=== PATIENT | female | born 1970 | race Caucasian/White ===

== ENCOUNTER 2018-03-11 02:50 | Emergency (ER) | payer OTHER ==
[~2018-03-11] VITALS: Ht 177.8 cm; Wt 127.0 kg
[~2018-03-11 02:50] MED LIST: COLACE100 MG PO; NORCO 5-325 TA1 EACH PO; PAROXETINE HCL20 MG PO; PRENATAL; PROCTOCREAM-HC30 G1 RC; PROZAC 20 MG20 M1 PO
[2018-03-11 03:27] LABS: HEMATOCRIT 40.3 % (37.0-47.0); HEMOGLOBIN 13.9 gm/dL (12.0-15.0); MCH 29.7 pg (26.0-34.0); MCHC 34.5 g/dL (28.0-37.0); MCV 86.2 fL (80.0-100.0); MPV 8.3 fl. (7.2-11.1); NUCLEATED RBCS 0 /100WBC; PLATELET COUNT* 217 thou/uL (150-400); RBC 4.68 mil/uL (4.20-5.00); RDW-CV 13.9 % (10.5-14.5); WBC 9.7 thou/uL (4.0-11.0)
[2018-03-11 03:29] LABS: URINE BILIRUBIN NEGATIVE (Negative); URINE BLOOD TRACE (Negative); URINE CLARITY CLEAR; URINE COLOR YELLOW; URINE GLUCOSE-RANDOM NEGATIVE (Negative); URINE KETONES NEGATIVE (Negative); URINE LEUKOCYTES-REFLEX NEGATIVE (Negative); URINE NITRITE-REFLEX NEGATIVE (Negative); URINE PROTEIN NEGATIVE (Negative)
[2018-03-11 03:37] LABS: CALCIUM 9.1 mg/dL (8.5-10.1); CREATININE 1.1 mg/dL (0.6-1.3); POTASSIUM 3.4 mmol/L (3.5-5.1)
[2018-03-11 03:41] LABS: ALBUMIN 3.7 g/dL (3.4-5.0); TOTAL BILIRUBIN 1.3 mg/dL (<0.1-1.0); TOTAL PROTEIN 7.6 g/dL (6.4-8.2)
[2018-03-11] MEDS ORDERED: NORCO 5-325 TA1 EACH PO (05:20)
[2018-03-11] MEDS ORDERED: ZOFRAN ODT4 MG PO (05:20)
[2018-03-11] MEDS ORDERED: FLAGYL500 MG PO (05:20)
[2018-03-11 05:29] VITALS: BP 166/99
[2018-03-11 06:20] LABS: ABSOLUTE BASOPHILS 0.1 thou/uL (0.0-0.2); ABSOLUTE EOSINOPHILS 0.1 thou/uL (0.0-0.7); ABSOLUTE LYMPHOCYTES 1.3 thou/uL (0.8-5.3); ABSOLUTE MONOCYTES 0.4 thou/uL (0.0-1.2); ABSOLUTE NEUTROPHILS 7.9 thou/uL (1.6-8.1)
[2018-03-11 06:21] LABS: PLATELET ESTIMATE ADEQUATE
[2018-03-11 06:22] LABS: TOXIC GRANULATION 2+
== END 2018-03-11 05:30 | disposition home or self-care (01) ==
LOC: M.ERS 02:50
PROVIDERS: Personal Emergency Response Attendant
DX: K81.9 Cholecystitis, unspecified (principal)